=== PATIENT | female | born 1960 | race Caucasian/White ===

== ENCOUNTER 2016-06-23 12:52 | Outpatient (CLI) | payer SELFPAY ==
[~2016-06-23] VITALS: Ht 162.6 cm; Wt 92.7 kg
--- NOTE | ~2016-06-23 | CATH ---
Cardiac Diagnostic Report Demographics Patient Name XI Ricks Gender Female Date of 1960 Age 56 year(s) Patient Number [id number] Date of Study 06/23/2016 Visit Number [id number] Room Number G6399 [place] [id number] Ht 163 cm Wt 92.7 kg Referring Brandt CONNELL Primary Physician Physician Audelia Yoo MD Performing [facility] Secondary Physician Physician Naila IRAHETA Diagnostic [facility] [place] Assisting Physician Physician Naila IRAHETA Interventional Physician Supervisor Grinding Physician Findings and Conclusions Diagnostic Findings and Conclusion Moderate non-obstructive disease distal Circumflex, 50% lesion focal at site of origin with large OM2 branch. Patent Cx and OM stents. LVEDP 11 mmHg. Diagnostic Recommendations Patient will be discharged later today. Hydration and followup creatinine. Continue current medications. Patient has been instructed to not lift anything more than 5 pounds for 1 week. I will plan on seeing the patient back in 4 week(s). Aggressive medical therapy for coronary artery disease. Aggressive risk factor management. Cardiac diet and exercise as tolerated. Procedure Description The patient was brought to the diagnostic cardiac catheterization-EP laboratory in the fasting, non-sedated state. Informed consent was obtained in the written and verbal form after the risks and benefits were explained. The patient had no further questions and agreed to proceed. The planned puncture-incision site(s) were shaved and prepped with ChloraPrep and draped in the usual sterile manner. Conscious sedation, supplemental oxygen, and pain control medications were delivered by a registered nurse under physician guidance. Surface ECG rhythm, blood pressure measurement, and pulse oximetry were monitored throughout the procedure. Arterial access. The access site was infiltrated with lidocaine. The vessel was entered with the Seldinger technique. A sheath was advanced into the vessel and used for catheter placement. Selective left coronary angiography. A catheter was advanced into the left coronary vessel ostium under Fluoroscopic guidance. Contrast was injected by hand. Images were obtained in multiple projections. Selective right coronary angiography. A catheter was advanced into the right coronary vessel ostium under fluoroscopic guidance. Contrast was injected by hand. Images were obtained in multiple projections. Left heart catheterization. A catheter was advanced across the aortic valve to the left ventricle under fluoroscopic guidance. Resting hemodynamics were obtained. Arterial artery hemostasis was achieved. The patient was transferred to a regular nursing floor via cart accompanied by a nurse. The patient left the laboratory in stable condition. Diagnostic Cath Status: Elective Procedure Procedure Type Diagnostic procedure:Angiography:, Coronary Angios /[facility] Indications: Unstable angina. The procedure was explained in detail to the patient. Risks, complications and alternative treatments were reviewed. Written consent was obtained. Medications Reviewed with Patient prior to Procedure. Angiographic Findings Dominance: Right Cardiac Arteries and Lesion Findings LMCA: Normal (0% Stenosis). LAD: Abnormal.prox 10% aneurysmal Lesion on Dist LAD: Distal subsection.10% stenosis . Lesion on 1st Dia% stenosis . LCx: Abnormal.distal 50%, CX/OM patent stents OM 10% stent patentThere is a previous stent on 2nd Ob Lia Mid subsection. Lesion on Dist CX: 10% stenosis . Lesion on 1st Ob Lia% stenosis . RCA: Abnormal.distal 30% PL and PDA normal Lesion on Dist RCA: 20% stenosis . Coronary Tree Procedure Data Procedure Date Date: 06/23/2016Start: 02:48 PMEnd: 03:22 PM Entry Locations - Retrograde Percutaneous access was performed through the Femoral artery (Primary location). A 6 Fr sheath was inserted. Hemostasis was successfully obtained using Angio-Seal STS PLUS ([facility] [facility]). Closure Comments: by Dr. Delaney. Procedure Medications Order and Administration + + + +-------+ !Time !Medication !Dosage !Route ! + + + +-------+ !06/23/2016 02:44 PM !Versed !1 mg ! ! + + + +-------+ !06/23/2016 02:50 PM !Versed !1 mg ! ! + + + +-------+ !06/23/2016 02:57 PM !Oxygen !2 l/min !NC ! + + + +-------+ Devices Used - A5 Fr. BS JL 4 Diag. Catheterwas used for:Left coronary angiography. - A5 Fr. BS JR 4 Diag. Catheterwas used for:Right coronary angiography. - A5 Fr. BS Angled Pigtail Diag. Catheterwas used for:Left Atrial Pressures. Contrast Material - Isovue 12737 ml Fluoroscopy Time: Diagnostic: 2:42 minutes. Total: 2:42 minutes. Fluoroscopy Dose: Diagnostic: 549 mGy. Total: 549 mGy. Estimated Blood Loss: 5 ml. Medical History Allergies - Other:(Latex, PCN, Metal, Bee Stings, Fish Oil, Seafood, Pork, Elastic). - Penicillin. - Sulfa. - Other:(pork, fish, shellfish, bees). - Latex. - Latex. - Penicillin. - Shellfish. - Sulfa. Risk Factors The patient risk factors include:prior PCI;hypercholesterolemia, hypertension, family history of premature CAD, last creatinine: 0.7 mg/dl, creatinine clearance: 129.76 ml/min, dyslipidemia and prior DE . Admission Data Admission Date: 06/23/2016 Admission Time: 12:52 PM Admit Source: Other Insurance Payors: None. Admission Medications + +------+------+ + + + + !Medication !Dosage!Times !Last !Last !Administered !Comments ! ! ! !Per !Delivery !Delivery ! ! ! ! ! !Day !Date !Time ! ! ! + +------+------+ + + + + !Statin (any)! ! ! ! ! ! ! + +------+------+ + + + + !Aspirin ! ! ! ! ! ! ! !(any) ! ! ! ! ! ! ! + +------+------+ + + + + !Nitrates (iv! ! ! ! ! ! ! !or buccal) ! ! ! ! ! ! ! + +------+------+ + + + + !ALPHONSO ! ! ! ! ! ! ! !Inhibitor ! ! ! ! ! ! ! !(any) ! ! ! ! ! ! ! + +------+------+ + + + + !Beta Aliza! ! ! ! ! ! ! !(any) ! ! ! ! ! ! ! + +------+------+ + + + + Clinical Evaluation Leading to Procedure - The patient's CAD presentation was assessed as: Unstable angina. - The patient's anginal syndrome during the past two weeks was assessed as: Class III according to the [place] Cardiovascular Society Classification System (CCS). Anti-anginal medications were prescribed during the past two weeks. The medications are: Beta Blockers and Ca channel Blockers. - The patient has been in a state of heart failure within the past two weeks. - The patient's heart failure status was assessed as NYHA Class II, with CHF symptoms of MOISE. Hemodynamics Condition: Rest O2 Consumption: Estimated: 186.72Heart Rate: 66 bpm Pressures (mmHg) +-----+ + !Site !Pressure ! +-----+ + !AO !136/70 (97) ! +-----+ + !LV !131/3 ,10 ! +-----+ + !LV !136/3 ,11 ! +-----+ + !LV !133/2 ,9 ! +-----+ + !AO !132/64 (93) ! +-----+ + !LV !134/1 ,9 ! +-----+ + Valve Gradients and Areas + +---------+---------+---------+ +---------+ + !Valve !Peak !Mean !Area !Index !Flow !Source ! + +---------+---------+---------+ +---------+ + !Aortic !2 !0 ! ! ! ! ! + +---------+---------+---------+ +---------+ + !Aortic !2 !0 ! ! ! ! ! + +---------+---------+---------+ +---------+ + Shunts Oxygen Values O2 Consumption 186.72 Signatures dtt: NAILA SHARPE dtd: 06/23/16 1448 Physician Self Edit
[~2016-06-23 12:52] MED LIST: ASPIRIN (CHILDR81 MG PO; ASPIRIN EC81 MG PO; BRILINTA90 MG PO; LEVOTHROID (S100 MCG PO; LIPITOR80 MG PO; LOPRESSOR25 MG PO; NICODERM (HABIT14 MG TRANS; NITROGLYCERIN0.4 MG PO; NORVASC5 MG PO; OSCAL + D500 MG PO; PEPCID20 MG PO; PLAVIX75 MG PO; PROVENTIL OR V6.7 GM INH; VASOTEC2.5 MG PO; VASOTEC5 MG PO; VITAMIN E400 UNI2 PO
== END 2016-06-23 17:27 | disposition disaster alternative care site (69) ==
LOC: GPCU 12:52 → GPOC 12:52 → GCAT 12:52
PROC: 4A023N7 Measurement of Cardiac Sampling and Pressure, Left Heart, Percutaneous Approach (ICD-10-PCS; principal; 2016-06-23)
PROC: B2111ZZ Fluoroscopy of Multiple Coronary Arteries using Low Osmolar Contrast (ICD-10-PCS; principal; 2016-06-23)
DX: I25.110 Atherosclerotic heart disease of native coronary artery with unstable angina pectoris (principal); I10 Essential (primary) hypertension; K21.9 Gastro-esophageal reflux disease without esophagitis; E78.00 Pure hypercholesterolemia, unspecified; Z72.0 Tobacco use; I25.2 Old myocardial infarction; Z95.5 Presence of coronary angioplasty implant and graft; E03.9 Hypothyroidism, unspecified; Z79.82 Long term (current) use of aspirin; Z79.899 Other long term (current) drug therapy; Z79.02 Long term (current) use of antithrombotics/antiplatelets; Z85.42 Personal history of malignant neoplasm of other parts of uterus; Z90.710 Acquired absence of both cervix and uterus; Z82.49 Family history of ischemic heart disease and other diseases of the circulatory system
CPT/HCPCS: C1760; J1644; J2001; J2250; J3010; J7030